=== PATIENT | male | born 1975 | race Caucasian/White ===

== ENCOUNTER 2018-03-10 12:54 | Emergency (ER) | payer SELFPAY ==
[~2018-03-10] VITALS: Ht 177.8 cm; Wt 65.8 kg
== END 2018-03-10 13:07 | disposition home or self-care (01) ==
LOC: ED 12:54
DX: M79.89 Other specified soft tissue disorders (principal)

== ENCOUNTER 2018-03-21 17:53 | Emergency (ER) | payer OTHER ==
[~2018-03-21] VITALS: Ht 177.8 cm; Wt 65.8 kg
--- OUTSIDE RECORDS SUMMARY | 2018-03-21 17:56 | XMS ---
PreManage Notification: ANITA JALLOH Security Api Product Manager Events No recent Security Events currently on file CRITERIA MET - - 2 Visits in 30 Days CARE PROVIDERS YAIR [place] Primary Care Current VIOLETTA PHONE: Unknown [facility] [address] Primary Care Bruno Javy PHONE: Unknown YNES BAKER Primary Care Current PHONE: Unknown Leonel has no Care Guidelines for this patient. E.D. VISIT COUNT (12 MO.) 2 D[facility]NE Garcia TOTAL 2 NOTE: Visits indicate total known visits. ED/UCC VISIT TRACKING (12 MO.) 03/21/2018 17:54 [facility] [place] TYPE: Emergency COMPLAINT: - RASH/SKIN PROBLEM 03/10/2018 12:55 [facility] [place] TYPE: Emergency COMPLAINT: - L HAND PAIN DIAGNOSES: - Other specified soft tissue disorders INPATIENT VISIT TRACKING (12 MO.) No inpatient visits to display in this time frame [id number]
== END 2018-03-21 18:28 | disposition left against medical advice (07) ==
LOC: ED 17:53
DX: Z53.21 Procedure and treatment not carried out due to patient leaving prior to being seen by health care provider (principal)

== ENCOUNTER 2018-06-07 20:31 | Emergency (ER) | payer OTHER ==
[~2018-06-07] VITALS: Ht 177.8 cm; Wt 70.8 kg
[2018-06-07] MEDS ORDERED: CLONAZEPAM0.5 MG PO (20:41)
[2018-06-07] MEDS ORDERED: GENVOYA TABLET1 EACH PO (20:42)
[2018-06-07] MEDS ORDERED: SERTRALINE HCL25 MG PO (20:42)
[2018-06-07] MEDS ORDERED: LOMOTIL TABLET1 EACH PO (22:58)
[2018-06-07] MEDS ORDERED: ZOFRAN4 MG PO (22:58)
== END 2018-06-07 23:08 | disposition home or self-care (01) ==
LOC: ED 20:31
DX: A08.4 Viral intestinal infection, unspecified (principal); B20 Human immunodeficiency virus [HIV] disease; F17.200 Nicotine dependence, unspecified, uncomplicated; Z88.8 Allergy status to other drugs, medicaments and biological substances; Z79.899 Other long term (current) drug therapy
CPT/HCPCS: 80053; 81001; 85025; 96361; 96374; 99284-25; J2405; J7040

== ENCOUNTER 2020-11-03 09:31 | Emergency (ER) | payer OTHER ==
[~2020-11-03] VITALS: Ht 177.8 cm; Wt 70.8 kg
[~2020-11-03 09:31] MED LIST: CLONAZEPAM0.5 MG PO; GENVOYA TABLET1 EACH PO; LOMOTIL TABLET1 EACH PO; SERTRALINE HCL25 MG PO; ZOFRAN4 MG PO
--- OUTSIDE RECORDS SUMMARY | 2020-11-03 09:34 | XMS ---
PreMana Notification: ANITA JALLOH Security Pairer Inspector Events No recent Security Events currently on file CRITERIA MET - RONALDP CARE PROVIDERS MIGUEL TOLEDO Physician Pattern Carrier 03/22/2018-Current PHONE: [phone] Leonel has no Care Guidelines for this patient. E.Sarina VISIT COUNT (12 MO.) [facility] D[facility] Garcia TOTAL 2 NOTE: Visits indicate total known visits. ED/UCC VISIT TRACKING (12 MO.) 11/03/2020 09:[address] [facility] TYPE: Emergency COMPLAINT: - FING[facility] COMPLAINT: - PT STS LEFT WRIST PAIN DIAGNOSES: - Pain in right wrist INPATIENT VISIT TRACKING (12 MO.) No inpatient visits to display in this time frame [id number]
[2020-11-03] MEDS ORDERED: CEPHALEXIN500 M1 PO (10:23)
== END 2020-11-03 10:30 | disposition home or self-care (01) ==
LOC: ED 09:31
DX: S56.422A Laceration of extensor muscle, fascia and tendon of left index finger at forearm level, initial encounter (principal); Z21 Asymptomatic human immunodeficiency virus [HIV] infection status; W26.0XXA Contact with knife, initial encounter; F17.200 Nicotine dependence, unspecified, uncomplicated; Z79.899 Other long term (current) drug therapy
CPT/HCPCS: 12001; 99282-25

== ENCOUNTER 2021-05-18 12:55 | Emergency (ER) | payer OTHER ==
[~2021-05-18] VITALS: Ht 177.8 cm; Wt 67.3 kg
[~2021-05-18 12:55] MED LIST changes: +AMOX TR-K CLV1 EAC1 PO; +CEPHALEXIN500 M1 PO; +CLINDAMYCIN HC300 MG PO
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
== END 2021-05-18 14:58 | disposition home or self-care (01) ==
LOC: ED 12:55
DX: R51.9 Headache, unspecified (principal); Z21 Asymptomatic human immunodeficiency virus [HIV] infection status; F17.200 Nicotine dependence, unspecified, uncomplicated; Z88.8 Allergy status to other drugs, medicaments and biological substances
CPT/HCPCS: 36415; 70450; 80053; 85025; 86140; 99284-25; A9270

== ENCOUNTER 2021-06-26 13:51 | Emergency (ER) | payer OTHER ==
[~2021-06-26] VITALS: Ht 177.8 cm; Wt 67.1 kg
[2021-06-26] MEDS ORDERED: CEPHALEXIN500 M1 PO (15:54)
[2021-06-26] MEDS ORDERED: HYDROCODON-ACE1 EA11 PO (16:13)
== END 2021-06-26 16:36 | disposition home or self-care (01) ==
LOC: ED 13:51
DX: L03.011 Cellulitis of right finger (principal); Z21 Asymptomatic human immunodeficiency virus [HIV] infection status; F17.210 Nicotine dependence, cigarettes, uncomplicated; Z88.8 Allergy status to other drugs, medicaments and biological substances
CPT/HCPCS: 10060; 99282-25